=== PATIENT | male | born 1945 | race Caucasian/White ===

== ENCOUNTER 2017-10-10 13:07 | Emergency (ER) | payer MEDICARE, MEDICAID ==
[~2017-10-10] VITALS: Ht 182.9 cm; Wt 88.0 kg
[~2017-10-10 13:07] MED LIST: ALBU4TAB6 PO; ALBU90AE IH; ASPI-1160 PO; BRIM15DR8 OP; CLOP75TA16 PO; FOLI-43 PO; LEVO500T2 MT; PRED5TAB PO; ROSU20TA PO; THEO80SO7 PO
[2017-10-10 14:25] LABS: HEMATOCRIT. 40.7 % (42.0-52.0); HEMOGLOBIN. 13.9 g/dL (14.0-18.0); MEAN CORPUSCULAR HEMOGLOBIN 32.1 pg (28.0-32.0); MEAN CORPUSCULAR VOLUME 93.7 fL (80.0-94.0); PLATELET 230 x1000/uL (130-400); RED BLOOD CELL COUNT 4.34 mill/uL (4.7-6.1); RED CELL DISTRIBUTION WIDTH 14.5 % (11.6-14.6)
[2017-10-10 14:31] LABS: CHLORIDE 106 mEq/L (98-107)
[2017-10-10 14:34] LABS: INR 1.2; PARTIAL THROMBOPLASTIN TIME 27.4 sec (23.4-31.0); PROTHROMBIN TIME 11.8 sec (9.1-11.1)
[2017-10-10 14:49] LABS: PLATELET ESTIMATE NORMAL
[2017-10-10] MEDS ORDERED: DEXAMETHASONE 10 MG/ML VIAL IM ONE (16:00)
[2017-10-10] MEDS ORDERED: KETOROLAC 60MG/2ML VIAL IM ONE (16:00)
[2017-10-10 16:37] VITALS: BP 126/75
== END 2017-10-10 17:10 | disposition home or self-care (01) ==
LOC: ER 13:07
DX: M06.9 Rheumatoid arthritis, unspecified (principal); R07.89 Other chest pain; E78.00 Pure hypercholesterolemia, unspecified; J45.909 Unspecified asthma, uncomplicated; N40.0 Benign prostatic hyperplasia without lower urinary tract symptoms; I51.9 Heart disease, unspecified; D72.829 Elevated white blood cell count, unspecified; Z98.61 Coronary angioplasty status
CPT/HCPCS: 36415; 71045; 80053; 83880; 84484; 85025; 85610; 85730; 93005; 96372; 99285; J1100; J1885

== ENCOUNTER 2018-12-31 14:50 | Emergency (ER) | payer MEDICARE, MEDICAID ==
[~2018-12-31] VITALS: Ht 182.9 cm; Wt 97.0 kg
[~2018-12-31 14:50] MED LIST changes: -CLOP75TA16 PO; +CLOP75TA4 PO; -ROSU20TA PO; +ROSU20TA2 PO
[2018-12-31] MEDS ORDERED: ALBUTEROL (0.083%) 2.5MG/3ML NEB HHN ONE (15:30)
[2018-12-31] MEDS ORDERED: IPRATROPIUM BROMIDE (0.02%) 0.5MG/2.5ML NEB HHN ONE (15:30)
[2018-12-31 16:26] VITALS: BP 109/89
[2019-01-02] MEDS ORDERED: TIOT18CA3 INH (11:13)
[2019-01-02] MEDS ORDERED: FLUT15.88 BOTHNSTRLS (11:13)
[2019-01-02] MEDS ORDERED: MONT10TA21 PO (11:13)
[2019-01-02] MEDS ORDERED: FINA1TAB18 PO (11:13)
[2019-01-02] MEDS ORDERED: HYDR200T35 PO (11:13)
[2019-01-02] MEDS ORDERED: DICL75TA5 PO (11:13)
== END 2018-12-31 17:53 | disposition home or self-care (01) ==
LOC: ER 14:50
DX: J44.1 Chronic obstructive pulmonary disease with (acute) exacerbation (principal); E78.00 Pure hypercholesterolemia, unspecified; Z79.82 Long term (current) use of aspirin; Z79.899 Other long term (current) drug therapy
CPT/HCPCS: 94640; 99283; J7611

== ENCOUNTER 2019-01-20 11:36 | Inpatient (IN) | payer MEDICARE, MEDICAID ==
[~2019-01-20] VITALS: Ht 182.9 cm; Wt 96.7 kg
[~2019-01-20 11:36] MED LIST changes: +DICL75TA5 PO; +FINA1TAB18 PO; +FLUT15.844 BOTHNSTRLS; +HYDR200T35 PO; -LEVO500T2 MT; +MONT10TA21 PO; +TIOT18CA3 INH
[2019-01-20] MEDS ORDERED: METHYLPREDNISOLONE SOD SUCC 125 MG/2 ML VIAL IV ONE (15:15)
[2019-01-20] MEDS ORDERED: IPRATROPIUM BROMIDE (0.02%) 0.5MG/2.5ML NEB HHN ONE (15:15)
[2019-01-20] MEDS ORDERED: ALBUTEROL (0.083%) 2.5MG/3ML NEB HHN ONE (15:15)
[2019-01-20 15:24] LABS: EOSINOPHILS % 7.1 % (0.0-5.0); HEMATOCRIT. 42.7 % (42.0-52.0); HEMOGLOBIN. 14.5 g/dL (14.0-18.0); LYMPHOCYTES % 13.8 % (20.0-50.0); MEAN CORPUSCULAR HEMOGLOBIN 33.6 pg (28.0-32.0); MEAN CORPUSCULAR VOLUME 98.6 fL (80.0-94.0); MEAN PLATELET VOLUME 8.8 fl (7.4-10.4); MONOCYTES % 10.2 % (2.0-8.0); NEUTROPHILS % 67.9 % (40.0-76.0); PLATELET 146 x1000/uL (130-400); RED BLOOD CELL COUNT 4.33 mill/uL (4.7-6.1); RED CELL DISTRIBUTION WIDTH 13.5 % (11.6-14.6)
[2019-01-20 15:30] LABS: CHLORIDE 109 mEq/L (98-107)
[2019-01-20 20:02] VITALS: BP 132/77
[2019-01-20 20:45] VITALS: BP 115/60
[2019-01-20] MEDS ORDERED: AZITHROMYCIN 500 MG in DEXT 5% WATER 250 ML IV SCH (22:00)
[2019-01-20] MEDS ORDERED: ONDANSETRON HCL 4MG/2ML INJ IV PRN (22:00)
[2019-01-20] MEDS ORDERED: LORAZEPAM 2MG/ML CPJ IV PRN (22:00)
[2019-01-20] MEDS ORDERED: HYDROCODONE/ACETAMINOPHEN 5/325MG TABLET PO PRN (22:00)
[2019-01-20] MEDS ORDERED: MORPHINE SULFATE 2 MG/ML CPJ (NOT FOR IM USE) IV PRN (22:00)
[2019-01-20] MEDS ORDERED: CEFTRIAXONE 1 G PREMIX 50 ML IV SCH (22:00)
[2019-01-20] MEDS ORDERED: CLONIDINE 0.1MG TABLET PO PRN (22:00)
[2019-01-20 23:18] VITALS: BP 132/77
[2019-01-20] MEDS: IPRATROPIUM/ALBUTEROL 0.5-3(2.5)MG/3ML NEB NEB PRN (23:24)
[2019-01-21] VITALS: BP 118/76
[2019-01-21 00:03] LABS: CREATINE KINASE 91 IU/L (39-308); CREATINE KINASE MB FRACTION 1.9 ng/mL (0.5-3.6)
[2019-01-21] MEDS: AZITHROMYCIN 500 MG in DEXT 5% WATER 250 ML IV SCH ×2 (00:57→23:54)
[2019-01-21] MEDS: METHYLPREDNISOLONE SOD SUCC 125 MG/2 ML VIAL IV SCH ×3 (00:57→12:20)
[2019-01-21] MEDS: CEFTRIAXONE 1 G PREMIX 50 ML IV SCH (00:57)
[2019-01-21 04:00] VITALS: BP 118/72
[2019-01-21] MEDS: IPRATROPIUM/ALBUTEROL 0.5-3(2.5)MG/3ML NEB NEB PRN ×2 (05:28→09:50)
[2019-01-21 06:51] LABS: HEMATOCRIT. 43.6 % (42.0-52.0); HEMOGLOBIN. 14.7 g/dL (14.0-18.0); MEAN CORPUSCULAR HEMOGLOBIN 33.7 pg (28.0-32.0); MEAN CORPUSCULAR VOLUME 99.6 fL (80.0-94.0); MEAN PLATELET VOLUME 9.4 fl (7.4-10.4); PLATELET 160 x1000/uL (130-400); RED BLOOD CELL COUNT 4.38 mill/uL (4.7-6.1); RED CELL DISTRIBUTION WIDTH 13.7 % (11.6-14.6)
[2019-01-21 07:40] LABS: CREATINE KINASE 85 IU/L (39-308)
[2019-01-21 07:41] LABS: CREATINE KINASE MB FRACTION 1.8 ng/mL (0.5-3.6)
[2019-01-21 08:00] VITALS: BP 128/73
[2019-01-21 08:12] LABS: CLARITY URINE TURBID (CLEAR); COLOR URINE YELLOW (YELLOW); KETONES URINE NEGATIVE (NEGATIVE); LEUKOCYTE ESTERASE URINE TRACE (NEGATIVE); NITRITE URINE POSITIVE (NEGATIVE); OCCULT BLOOD URINE NEGATIVE (NEGATIVE); PROTEIN URINE TRACE (NEGATIVE); UROBILINOGEN URINE 0.2 E.U./dL (0.2-1.0)
[2019-01-21] MEDS: FOLIC ACID 1MG TABLET PO SCH (08:34)
[2019-01-21] MEDS: LISINOPRIL 20MG TABLET PO SCH (08:35)
[2019-01-21] MEDS: ASPIRIN 81MG EC TABLET PO SCH (08:35)
[2019-01-21] MEDS ORDERED: ENOXAPARIN 30MG/0.3ML SYR SUBCUT SCH (09:00)
[2019-01-21] MEDS ORDERED: FUROSEMIDE 40MG/4ML VIAL IV SCH (09:00)
[2019-01-21 12:00] VITALS: BP 95/65
[2019-01-21] MEDS: IPRATROPIUM/ALBUTEROL 0.5-3(2.5)MG/3ML NEB HHN SCH ×3 (13:21→20:49)
[2019-01-21] MEDS: CLOPIDOGREL 75MG TABLET PO SCH (13:30)
[2019-01-21] MEDS: LORATADINE 10MG TABLET PO SCH (15:27)
[2019-01-21 16:00] VITALS: BP 91/55
[2019-01-21] MEDS: MONTELUKAST SODIUM 10MG TABLET PO SCH (17:51)
[2019-01-21 20:00] VITALS: BP 99/61
[2019-01-21] MEDS: GUAIFENESIN 600MG ER TABLET PO SCH (20:12)
[2019-01-21] MEDS: FAMOTIDINE 20MG TABLET PO SCH (20:12)
[2019-01-21 20:45] LABS: PLATELET ESTIMATE NORMAL
[2019-01-22] VITALS: BP 95/53
[2019-01-22] MEDS: IPRATROPIUM/ALBUTEROL 0.5-3(2.5)MG/3ML NEB HHN SCH ×6 (00:37→21:10)
[2019-01-22] MEDS: CEFTRIAXONE 1 G PREMIX 50 ML IV SCH (00:59)
[2019-01-22 04:00] VITALS: BP 96/56
[2019-01-22] MEDS: FAMOTIDINE 20MG TABLET PO SCH ×2 (05:56→20:42)
[2019-01-22 07:02] LABS: BASOPHILS % 0.1 % (0.0-2.0); EOSINOPHILS % 0.1 % (0.0-5.0); HEMATOCRIT. 39.9 % (42.0-52.0); HEMOGLOBIN. 13.5 g/dL (14.0-18.0); LYMPHOCYTES % 7.1 % (20.0-50.0); MEAN CORPUSCULAR HEMOGLOBIN 33.6 pg (28.0-32.0); MEAN CORPUSCULAR VOLUME 99.3 fL (80.0-94.0); MEAN PLATELET VOLUME 9.2 fl (7.4-10.4); MONOCYTES % 8.2 % (2.0-8.0); NEUTROPHILS % 84.5 % (40.0-76.0); PLATELET 178 x1000/uL (130-400); RED BLOOD CELL COUNT 4.02 mill/uL (4.7-6.1); RED CELL DISTRIBUTION WIDTH 13.7 % (11.6-14.6)
[2019-01-22 07:22] LABS: CHLORIDE 110 mEq/L (98-107)
[2019-01-22 08:00] VITALS: BP 115/64
[2019-01-22] MEDS: FOLIC ACID 1MG TABLET PO SCH (09:16)
[2019-01-22] MEDS: ASPIRIN 81MG EC TABLET PO SCH (09:16)
[2019-01-22] MEDS: LISINOPRIL 20MG TABLET PO SCH (09:16)
[2019-01-22] MEDS: CLOPIDOGREL 75MG TABLET PO SCH (09:16)
[2019-01-22] MEDS: PREDNISONE 20MG TABLET PO SCH (09:16)
[2019-01-22] MEDS: LORATADINE 10MG TABLET PO SCH (09:16)
[2019-01-22] MEDS: GUAIFENESIN 600MG ER TABLET PO SCH ×2 (09:16→20:42)
[2019-01-22] MEDS: ENOXAPARIN 40MG/0.4ML SYR SUBCUT SCH (09:17)
[2019-01-22 12:00] VITALS: BP 102/58
[2019-01-22] MEDS: THEOPHYLLINE ANHYDROUS 80 MG/15 ML 120ML PO SCH ×2 (14:33→21:01)
[2019-01-22 16:00] VITALS: BP 115/60
[2019-01-22] MEDS: MONTELUKAST SODIUM 10MG TABLET PO SCH (17:00)
[2019-01-22 20:00] VITALS: BP 107/60
[2019-01-22] MEDS: BUDESONIDE 0.5MG/2ML NEB HHN SCH (21:12)
[2019-01-22] MEDS: AZITHROMYCIN 500 MG in DEXT 5% WATER 250 ML IV SCH (23:17)
[2019-01-23] VITALS: BP 101/56
[2019-01-23] MEDS: IPRATROPIUM/ALBUTEROL 0.5-3(2.5)MG/3ML NEB HHN SCH ×3 (01:05→08:19)
[2019-01-23] MEDS: CEFTRIAXONE 1 G PREMIX 50 ML IV SCH (01:33)
[2019-01-23 04:00] VITALS: BP 103/60
[2019-01-23] MEDS: FAMOTIDINE 20MG TABLET PO SCH (05:53)
[2019-01-23] MEDS: THEOPHYLLINE ANHYDROUS 80 MG/15 ML 120ML PO SCH (05:54)
[2019-01-23 08:00] VITALS: BP 123/63
[2019-01-23] MEDS: BUDESONIDE 0.5MG/2ML NEB HHN SCH (08:18)
[2019-01-23] MEDS: LORATADINE 10MG TABLET PO SCH (08:26)
[2019-01-23] MEDS: LISINOPRIL 20MG TABLET PO SCH (08:26)
[2019-01-23] MEDS: CLOPIDOGREL 75MG TABLET PO SCH (08:27)
[2019-01-23] MEDS: GUAIFENESIN 600MG ER TABLET PO SCH (08:27)
[2019-01-23] MEDS: ENOXAPARIN 40MG/0.4ML SYR SUBCUT SCH (08:27)
[2019-01-23] MEDS: PREDNISONE 20MG TABLET PO SCH (08:27)
[2019-01-23] MEDS: ASPIRIN 81MG EC TABLET PO SCH (08:27)
[2019-01-23] MEDS: FOLIC ACID 1MG TABLET PO SCH (08:27)
[2019-01-23 12:00] VITALS: BP 110/67
[2019-01-23 13:02] VITALS: BP 110/67
[2019-01-24 09:11] LABS: COMPLEMENT C3 114 mg/dL (82-167)
[2019-01-25 17:06] LABS: ANTI-MYELOPEROXIDASE AB < 9.0 U/mL (0.0-9.0); ANTI-PROTEINASE 3 ABS < 3.5 U/mL (0.0-3.5)
[2019-01-26 09:10] LABS: ANGIOTENSION CONVERTING ENZYME 8 U/L (14-82)
[2019-01-26 15:06] LABS: ATYPICAL P-ANCA <1:20 titer (Neg:<1:20); CYTOPLASMIC C-ANCA <1:20 titer (Neg:<1:20); PERINUCLEAR P-ANCA <1:20 titer (Neg:<1:20)
[2019-01-26 17:08] LABS: ANA IFA Negative (.)
== END 2019-01-23 13:45 | disposition home or self-care (01) | DRG 871 ==
LOC: ER 11:36 → ENRESERV 18:16 → 5WST 20:16
PROVIDERS: ADMIT Internal Medicine Nephrology; ATTEND Internal Medicine Nephrology
DX: A41.9 Sepsis, unspecified organism (principal); J96.20 Acute and chronic respiratory failure, unspecified whether with hypoxia or hypercapnia; J44.1 Chronic obstructive pulmonary disease with (acute) exacerbation; J45.901 Unspecified asthma with (acute) exacerbation; N39.0 Urinary tract infection, site not specified; J44.0 Chronic obstructive pulmonary disease with (acute) lower respiratory infection; J84.9 Interstitial pulmonary disease, unspecified; E78.5 Hyperlipidemia, unspecified; I77.6 Arteritis, unspecified; E87.8 Other disorders of electrolyte and fluid balance, not elsewhere classified; I13.10 Hypertensive heart and chronic kidney disease without heart failure, with stage 1 through stage 4 chronic kidney disease, or unspecified chronic kidney disease; J20.9 Acute bronchitis, unspecified; I25.10 Atherosclerotic heart disease of native coronary artery without angina pectoris; M05.10 Rheumatoid lung disease with rheumatoid arthritis of unspecified site; M16.10 Unilateral primary osteoarthritis, unspecified hip; M17.10 Unilateral primary osteoarthritis, unspecified knee; N18.9 Chronic kidney disease, unspecified; K59.00 Constipation, unspecified; D64.9 Anemia, unspecified; Z95.0 Presence of cardiac pacemaker; Z95.5 Presence of coronary angioplasty implant and graft; Z86.73 Personal history of transient ischemic attack (TIA), and cerebral infarction without residual deficits; Z87.891 Personal history of nicotine dependence; Z83.3 Family history of diabetes mellitus; Z83.6 Family history of other diseases of the respiratory system; Z79.82 Long term (current) use of aspirin; Z79.52 Long term (current) use of systemic steroids; Z79.899 Other long term (current) drug therapy
CPT/HCPCS: 36415; 71045; 80048; 80053; 81003; 82164; 82550; 82553; 83520; 83880; 84484; 85025; 86160; 86256; 93005; 94640; 96374; 97162; 97165; 99285; C1893; J0456; J0696; J1650; J1940; J2930; J7060; J7512; J7611; J7620; J7626